=== PATIENT | male | born 1945 | race Caucasian/White ===

== ENCOUNTER 2018-01-07 23:07 | Emergency (ER) | payer OTHER ==
[~2018-01-07] VITALS: Ht 175.3 cm; Wt 98.9 kg
[2018-01-07 23:11] VITALS: Ht 175.3 cm; Wt 98.9 kg
[2018-01-08 00:40] VITALS: BP 144/81
== END 2018-01-08 00:40 | disposition home or self-care (01) ==
LOC: ED 23:07
DX: I10 Essential (primary) hypertension (principal); E78.00 Pure hypercholesterolemia, unspecified